=== PATIENT | male | born 1955 | race Caucasian/White ===

== ENCOUNTER 2020-07-31 07:03 | Emergency (ER) | payer OTHER, MEDICARE ==
[2020-07-31 07:34] VITALS: BP 147/85; PULSE 63; TEMP 98.5; BMI 40.4
== END 2020-07-31 09:36 | disposition home or self-care (01) ==
LOC: JER 07:03
DX: M79.672 Pain in left foot (principal)
CPT/HCPCS: 73630-TC-LT; 99284-25

== ENCOUNTER 2023-11-12 10:22 | Emergency (ER) | payer OTHER, MEDICARE ==
[2023-11-12 10:38] VITALS: BP 135/84; PULSE 71; RESP 18; TEMP 98.2; BMI 41.6
[2023-11-12] MEDS ORDERED: FAMOTIDINE 20 MG/50 ML IVPB 20 MG/50 ML MG IVPB ONE (11:10)
[2023-11-12] MEDS ORDERED: MAG HYDROX/AL HYDROX/SIMETH 30 ML UNIT-DOSE CUP ONE (11:10)
[2023-11-12 11:17] LABS: INR 1.08 (0.83-1.09); PROTHROMBIN TIME (PATIENT) 12.3 SEC (9.7-13.0)
[2023-11-12 11:18] LABS: HEMATOCRIT 42.9 % (35.4-49); HEMOGLOBIN 14.3 G/dL (11.7-16.9); MCH 27.7 pg (25.7-33.7); MCHC 33.4 g/dl (32.0-35.9); MEAN CELL VOLUME 82.9 fl (80-96); MEAN PLT VOLUME 10.3 fl (7.5-11.1); PLATELET COUNT 128.3 10^3/uL (134-434); RBC 5.17 10^6/uL (4.00-5.60); RDW 14.2 % (11.9-15.9); WHITE BLOOD COUNT 5.2 10^3/uL (4.0-10.8)
[2023-11-12 11:20] LABS: ACTIVATED PTT 36.4 SECONDS (25.2-36.5)
[2023-11-12 11:21] LABS: PLATELET ESTIMATE ADEQUATE
[2023-11-12] MEDS: FAMOTIDINE 20 MG/50 ML IVPB 20 MG/50 ML MG IVPB ONE (11:33)
[2023-11-12] MEDS: MAG HYDROX/AL HYDROX/SIMETH 30 ML UNIT-DOSE CUP PO ONE (11:33)
[2023-11-12 11:37] LABS: ALBUMIN 4.7 g/dl (3.4-5.0); BILIRUBIN,TOTAL 0.6 mg/dl (0.2-1); CREATININE 1.3 mg/dl (0.6-1.3); POTASSIUM 4.4 mmol/L (3.5-5.1); TOT PROT 7.6 g/dl (6.4-8.2)
[2023-11-12] MEDS ORDERED: AMOX TR/POT CLAV 875MG/125MG TABLETS (FP) ONE (13:07)
[2023-11-12] MEDS: AMOX TR/POT CLAV 875MG/125MG TABLETS (FP) PO ONE (13:10)
== END 2023-11-12 13:20 | disposition home or self-care (01) ==
LOC: FER 10:22
DX: K57.90 Diverticulosis of intestine, part unspecified, without perforation or abscess without bleeding (principal); R10.32 Left lower quadrant pain; R11.0 Nausea
CPT/HCPCS: 36415; 74177-TC; 80053; 80197; 81003; 83605; 83690; 85027; 85610; 85730; 86850; 86900; 86901; 87086; 99285-25; Q9967